=== PATIENT | male | born 1990 ===

== ENCOUNTER 2021-01-19 03:19 | Emergency (ER) | payer BC | END 2021-01-19 04:10 | LOC: ERS 03:19 | DX: F41.9 Anxiety disorder, unspecified (principal); F10.129 Alcohol abuse with intoxication, unspecified; K92.0 Hematemesis; E11.9 Type 2 diabetes mellitus without complications; F17.210 Nicotine dependence, cigarettes, uncomplicated; Z79.84 Long term (current) use of oral hypoglycemic drugs | CPT/HCPCS: 99284 ==